=== PATIENT | male | born 1990 | race Caucasian/White ===

== ENCOUNTER 2017-09-14 10:13 | Emergency (ER) | payer BC ==
[~2017-09-14] VITALS: Ht 175.3 cm; Wt 86.5 kg
[2017-09-14 10:16] VITALS: BP 157/96; PULSE 87; RESP 14; TEMP 98.9; O2SAT 97
[2017-09-14] MEDS ORDERED: CEFD300C PO (10:37)
[2017-09-14] MEDS ORDERED: guaiFENesin/CODEINE SYRUP 200 MG/20 MG/10 ML CUP PO ONE (10:45)
[2017-09-14 11:09] LABS: AUTOMATED NEUTROPHIL # 3.3 TH/MM3 (1.8-7.7); BASOPHIL % 0.4 % (0.0-2.0); EOSINOPHIL % 0.5 % (0.0-4.0); HEMATOCRIT 40.3 % (39.0-51.0); HEMOGLOBIN 14.5 GM/DL (13.0-17.0); LYMPH % 17.9 % (9.0-44.0); LYMPHOCYTE # 0.8 TH/MM3 (1.0-4.8); MEAN CELL VOLUME 85.2 FL (80.0-100.0); MEAN CORPUSCULAR HEMOGLOBIN 30.6 PG (27.0-34.0); MEAN CORPUSCULAR HGB CONC 35.9 % (32.0-36.0); MEAN PLATELET VOLUME 7.8 FL (7.0-11.0); MONO % 10.7 % (0.0-8.0); MONOCYTE # 0.5 TH/MM3 (0-0.9); NEUT % 70.5 % (16.0-70.0); PLATELET COUNT 189 TH/MM3 (150-450); RED BLOOD COUNT 4.73 MIL/MM3 (4.50-5.90); WHITE BLOOD COUNT 4.7 TH/MM3 (4.0-11.0)
--- NOTE | 2017-09-14 11:28 | PD ---
HPI Chief Complaint: Fever Time Seen by Provider: 10:35 Travel History International Travel<30 days: No Contact w/Intl Traveler<30days: No Traveled to known affect area: No History of Present Illness HPI 26yo F with no PMH presents to the ED with c/o cough for 5 days. Pt said he went to urgent care and was started on cefdinir 2 days ago. Pt said his cough is worst. Also with fever intermittently. Denies any chest pain, sob, n/v, abdominal pain, focal weakness or numbness. Pt said he does have mild headache when he has a fever but currently no fever or headache. PFSH Past Medical History Medical History: Denies Significant Hx Diminished Hearing: No Tetanus Vaccination: > 5 Years Influenza Vaccination: No Past Surgical History Thoracic Surgery: Yes (left elbow sx) Social History Alcohol Use: Yes (on occasion) Tobacco Use: No Substance Use: No Allergies-Medications (Allergen,Severity, Reaction): Coded Allergies: No Known Allergies (Unverified , 09/14/17) Reported Meds & Prescriptions Reported Meds & Active Scripts Active Reported Cefdinir 300 Mg Cap 300 Mg PO BID Review of Systems Except as stated in HPI: all other systems reviewed are Neg Physical Exam Narrative GENERAL: 26yo M not in distress. SKIN: Focused skin assessment warm/dry. HEAD: Atraumatic. Normocephalic. EYES: Pupils equal and round. No scleral icterus. No injection or drainage. ENT: No nasal bleeding or discharge. Mucous membranes pink and moist. NECK: Trachea midline. No JVD. CARDIOVASCULAR: Regular rate and rhythm. No murmur appreciated. RESPIRATORY: No accessory muscle use. Clear to auscultation. Breath sounds equal bilaterally. GASTROINTESTINAL: Abdomen soft, non-tender, nondistended. MUSCULOSKELETAL: No obvious deformities. No clubbing. No cyanosis. No edema. NEUROLOGICAL: Awake and alert. No obvious cranial nerve deficits. Motor grossly within normal limits. Normal speech. PSYCHIATRIC: Appropriate mood and affect; insight and judgment normal. Data Data Last Documented VS Vital Signs Date Time Temp Pulse Resp B/P (MAP) Pulse Ox O2 Delivery O2 Flow Rate FiO2 09/14/17 10:16 98.9 87 14 157/96 (116) 97 Orders Orders Complete Blood Count With Diff (09/14/17 10:44) Basic Metabolic Panel (Bmp) (09/14/17 10:44) Chest, Single Ap (09/14/17 ) Influenzae A/B Antigen (09/14/17 10:44) Group A Rapid Strep Screen (09/14/17 10:44) Guaifen-Cod 200-20 Mg/10ml Liq (Robituss (09/14/17 10:45) Strep Culture (Group A) (09/14/17 10:55) Labs Laboratory Tests Test 09/14/17 10:55 White Blood Count 4.7 TH/MM3 Red Blood Count 4.73 MIL/MM3 Hemoglobin 14.5 GM/DL Hematocrit 40.3 % Mean Corpuscular Volume 85.2 FL Mean Corpuscular Hemoglobin 30.6 PG Mean Corpuscular Hemoglobin Concent 35.9 % Red Cell Distribution Width 13.0 % Platelet Count 189 TH/MM3 Mean Platelet Volume 7.8 FL Neutrophils (%) (Auto) 70.5 % Lymphocytes (%) (Auto) 17.9 % Monocytes (%) (Auto) 10.7 % Eosinophils (%) (Auto) 0.5 % Basophils (%) (Auto) 0.4 % Neutrophils # (Auto) 3.3 TH/MM3 Lymphocytes # (Auto) 0.8 TH/MM3 Monocytes # (Auto) 0.5 TH/MM3 Eosinophils # (Auto) 0.0 TH/MM3 Basophils # (Auto) 0.0 TH/MM3 CBC Comment DIFF FINAL Differential Comment Blood Urea Nitrogen 9 MG/DL Creatinine 1.07 MG/DL Random Glucose 100 MG/DL Calcium Level 9.2 MG/DL Sodium Level 139 MEQ/L Potassium Level 4.0 MEQ/L Chloride Level 107 MEQ/L Carbon Dioxide Level 26.0 MEQ/L Anion Gap 6 MEQ/L Estimat Glomerular Filtration Rate 84 ML/MIN [facility] Medical Decision Making Medical Screen Exam Complete: Yes Emergency Medical Condition: Yes Differential Diagnosis Pneumonia vs. bronchitis vs. URI Narrative Course 26yo M who is very well appearing here with fever and cough. Pt is speaking in complete sentences and O2 sat is 97% on RA. Influenza and group A strep negative. CXR showed right basilar infiltrate. Pt is very well appearing and has cefdinir so will add azithromycin for atypical coverage. Labs reviewed, no leukocytosis. H/H normal. BMP unremarkable. Pt given robitussin and is feeling better. Diagnosis Primary Impression: Pneumonia Qualified Codes: J18.1 - Lobar pneumonia, unspecified organism Patient Instructions: General Instructions Departure Forms: Tests/Procedures Additional Instructions: Please follow up with your primary care physician in 2-3 days. Return to the ED if symptoms worsen. Med/Other Pt SpecificInfo: Prescription(s) given Scripts Dextromethorphan (Robitussin Lingering Cold) 15 Mg Cap 30 MG PO Q8H Y for COUGH for 5 Days, #30 CAP 0 Refills Prov: Yara Swanson DO 09/14/17 Azithromycin (Zithromax Z-Brenden) 250 Mg Dspk 250 MG PO DIRECTED for Infection, #1 DSPK 0 Refills 500 MG (2 tabs) day 1, then 1 tab days 2-5. Prov: Yara Swanson DO 09/14/17 Disposition: 01 DISCHARGE HOME Condition: Stable Yara Swanson DO Sep 14, 2017 11:28
[2017-09-14 11:29] LABS: CALCIUM 9.2 MG/DL (8.5-10.1); CREATININE 1.07 MG/DL (0.60-1.30)
--- NOTE | 2017-09-14 12:00 | RADRPT ---
EXAM DATE: 09/14/2017 11:46 AM EDT AGE/SEX: 26 years / Male INDICATIONS: Mid-chest pain, fever, and cough. CLINICAL DATA: This is the patient's initial encounter. Patient reports that signs and symptoms have been present for 2 days and indicates a pain score of 5/10. MEDICAL/SURGICAL HISTORY: None. None. COMPARISON: No prior exams available for comparison. FINDINGS: A single AP view of the chest demonstrates the right basilar infiltrate. Left lung clear. The cardiom ediastinal contours are unremarkable. Osseous structures are intact. CONCLUSION: Right basilar infiltrate. Treatment and follow-up to resolution using serial radiographs. Electronically signed by: Talha Millan MD 09/14/2017 11:58 AM EDT
[2017-09-14] MEDS ORDERED: ZITHTAB PO (12:44)
[2017-09-14] MEDS ORDERED: ROBICAP2 PO (12:44)
[2017-09-14 13:31] VITALS: BP 134/78
== END 2017-09-14 13:33 | disposition home or self-care (01) ==
LOC: NEPC 10:13
DX: J18.1 Lobar pneumonia, unspecified organism (principal); R51 Headache
CPT/HCPCS: 71045; 80048; 85025; 87081; 87804; 87880; 99284